=== PATIENT | male | born 1950 | race Caucasian/White ===

== ENCOUNTER 2019-06-26 09:12 | Day surgery (SDC) | payer MEDICARE ==
[~2019-06-26] VITALS: Ht 177.8 cm; Wt 103.5 kg
[2019-06-26] VITALS (10 sets, daily range): BP systolic 119–134; BP diastolic 74–96
[~2019-06-26 09:12] MED LIST: ASPI-1264 PO; CRESTOR PO; LISINOPRIL PO; NORCO PO; OMEP-84 PO; [UNRECOGNIZED DRUG - OTHER] PO
[2019-06-26] MEDS ORDERED: normal saline 1000ml 1,000 ML IV SCH (09:45)
[2019-06-26] MEDS ORDERED: diphenhydrAMINE 25mg capsule PO ONE (09:45)
[2019-06-26] MEDS ORDERED: CAYE450C PO (10:30)
[2019-06-26] MEDS ORDERED: ASCO-336 PO (10:30)
[2019-06-26] MEDS ORDERED: TADA5TAB2 PO (10:30)
[2019-06-26] MEDS ORDERED: HYDR25TA4 PO (10:30)
[2019-06-26] MEDS ORDERED: fentaNYL/PF 50MCG/1 ML 2ML syringe ONE (10:37)
[2019-06-26] MEDS ORDERED: iohexol 350 MG/ML 50ML vial IV ONE ×2 (10:37→11:48)
[2019-06-26] MEDS ORDERED: LIDOcaine 1% (10mg/ml)w/preservative injection 20ml MDV ONE (10:37)
[2019-06-26] MEDS ORDERED: midazolam 2 mg/2 ml injection ONE ×2 (10:37→11:33)
[2019-06-26] MEDS ORDERED: iohexol 350MG/ML 100ml bottle IV ONE (10:37)
[2019-06-26 10:54] LABS: BASOPHILS % (AUTO) 0.5 % (0-1); EOSINOPHILS # (AUTO) 0.2 X10'3 (0-0.9); EOSINOPHILS % (AUTO) 3.1 % (0-6); HEMATOCRIT 53.7 % (42.0-52.0); LYMPHOCYTES # (AUTO) 2.1 X10'3 (1.1-4.8); LYMPHOCYTES % (AUTO) 32.2 % (21-51); MEAN CORPUSCULAR HEMOGLOBIN 30.2 PG (27.0-31.0); MEAN CORPUSCULAR HGB CONC 33.6 g/dL (33.0-36.5); MEAN CORPUSCULAR VOLUME 89.8 FL (78-98); MEAN PLATELET VOLUME 8.1 FL (7.4-10.4); MONOCYTES # (AUTO) 0.8 X10'3 (0-0.9); MONOCYTES % (AUTO) 11.5 % (2-12); NEUTROPHILS # (AUTO) 3.5 X10'3 (1.8-7.7); NEUTROPHILS % (AUTO) 52.7 % (42-75); PLATELET COUNT 226 X10'3 (140-440); RED BLOOD COUNT 5.97 X10'6 (4.70-6.10); RED CELL DISTRIBUTION WIDTH 14.6 % (11.5-14.5); WHITE BLOOD COUNT 6.6 X10'3 (4.5-11.0)
[2019-06-26 10:59] LABS: ANION GAP 8 (8-16); BLOOD UREA NITROGEN 18 MG/DL (7-18); BUN/CREATININE RATIO 16.2 (5.4-32.0); CALCIUM 9.5 MG/DL (8.5-10.1); CHLORIDE 101 MMOL/L (99-107); CREATININE 1.11 MG/DL (0.60-1.10); GLUCOSE 118 MG/DL (70-104); MAGNESIUM 1.9 MG/DL (1.5-2.4); POTASSIUM 3.8 MMOL/L (3.5-5.1); SODIUM 136 MMOL/L (135-145); TOTAL CARBON DIOXIDE 27.2 MMOL/L (24-32); eGFR 66 ML/MIN
== END 2019-06-26 16:00 | disposition home or self-care (01) ==
LOC: SSTAY O 09:12
PROVIDERS: ATTEND Internal Medicine Cardiovascular Disease
DX: R94.39 Abnormal result of other cardiovascular function study (principal); I25.10 Atherosclerotic heart disease of native coronary artery without angina pectoris; I25.2 Old myocardial infarction; R53.83 Other fatigue
CPT/HCPCS: 36415; 80048; 83735; 85025; 85610; 93005; 93459; C1760; C1769; C1894; J1644; J2001; J2250; J3010; Q0163; Q9967; 93567; 99152; 99153; A4620; A6258

== ENCOUNTER 2023-12-30 16:07 | Emergency (ER) | payer MEDICARE, OTHER ==
[~2023-12-30] VITALS: Ht 172.7 cm; Wt 104.5 kg
[~2023-12-30 16:07] MED LIST changes: +ASCO-336 PO; +CAYE450C PO; +HYDR25TA4 PO; -NORCO PO; +TADA5TAB2 PO
[2023-12-30 16:59] LABS: BASOPHILS % (AUTO) 0.7 % (0-1); EOSINOPHILS # (AUTO) 0.3 X10'3 (0-0.9); EOSINOPHILS % (AUTO) 3.9 % (0-6); HEMATOCRIT 48.9 % (42.0-52.0); HEMOGLOBIN 16.5 g/dl (14.0-17.9); LYMPHOCYTES # (AUTO) 1.8 X10'3 (1.1-4.8); LYMPHOCYTES % (AUTO) 27.7 % (21-51); MEAN CORPUSCULAR HEMOGLOBIN 30.6 PG (27.0-31.0); MEAN CORPUSCULAR HGB CONC 33.7 g/dL (33.0-36.5); MEAN CORPUSCULAR VOLUME 90.9 FL (78-98); MONOCYTES # (AUTO) 0.7 X10'3 (0-0.9); MONOCYTES % (AUTO) 11.1 % (2-12); NEUTROPHILS # (AUTO) 3.7 X10'3 (1.8-7.7); NEUTROPHILS % (AUTO) 56.6 % (42-75); PLATELET COUNT 202 X10'3 (140-440); RED BLOOD COUNT 5.38 X10'6 (4.70-6.10); RED CELL DISTRIBUTION WIDTH 15.7 % (11.5-14.5); WHITE BLOOD COUNT 6.5 X10'3 (4.5-11.0)
[2023-12-30 17:32] LABS: ALBUMIN 3.4 G/DL (3.4-5.0); ANION GAP 14 (8-16); BLOOD UREA NITROGEN 20 MG/DL (7-18); BUN/CREATININE RATIO 18.3 (10.0-20.0); CALCIUM 8.8 MG/DL (8.5-10.1); CHLORIDE 104 MMOL/L (99-107); CREATININE 1.09 MG/DL (0.60-1.10); PRO BRAIN NATRIURETIC PEPTIDE 45 PG/ML (0-125); SODIUM 141 MMOL/L (135-145); TOTAL CARBON DIOXIDE 23.5 MMOL/L (24-32); eCRCL 58 ML/MIN; eGFR 66 ML/MIN
[2023-12-30 17:34] LABS: GLUCOSE 138 MG/DL (70-104); POTASSIUM 3.8 MMOL/L (3.5-5.1)
[2023-12-30 17:41] VITALS: PULSE 76
[2023-12-30 22:05] VITALS: BP 122/95; RESP 16; TEMP 98.2; O2SAT 96
== END 2023-12-30 19:30 | disposition home or self-care (01) ==
LOC: ER 16:07
DX: R06.02 Shortness of breath (principal); F17.200 Nicotine dependence, unspecified, uncomplicated; Z79.899 Other long term (current) drug therapy; Z79.82 Long term (current) use of aspirin
CPT/HCPCS: 36415; 71045; 80048; 83880; 84484; 85025; 93005; 99285

== ENCOUNTER 2024-10-11 23:59 | Emergency (ER) | payer MEDICARE, OTHER ==
[~2024-10-11] VITALS: Ht 172.7 cm; Wt 228.1 kg
[2024-10-12 00:08] VITALS: BP 175/103; PULSE 86; RESP 18; TEMP 99; O2SAT 97
== END 2024-10-12 02:22 | disposition left against medical advice (07) ==
LOC: ER 23:59
DX: M25.551 Pain in right hip (principal); M79.651 Pain in right thigh; Z53.21 Procedure and treatment not carried out due to patient leaving prior to being seen by health care provider

== ENCOUNTER 2024-10-30 11:20 | Outpatient (CLI) | payer MEDICARE, OTHER ==
--- NOTE | 2024-10-30 17:35 | RADIOLOGY REPORT ---
PROCEDURE: MR MRI LUMBAR SPINE INDICATION: SCIATICA, RIGHT SIDE Exam Date: 10/30/2024 11:26 AM COMPARISON: None TECHNIQUE: MRI lumbar spine without intravenous contrast. FINDINGS: Mild levoscoliosis. Grade 1 anterolisthesis of L4 on L5. There are degenerative endplate changes inc luding modic endplate changes with anterior and lateral osteophytes throughout the lumbar spine. The visualized distal spinal cord and conus medullaris are within normal limits. The conus medullaris ap pears to terminate within normal limits. The visualized retroperitoneal and paraspinal soft tissues are unremarkable. Diffuse epidural lipomatosis. The following axial levels are detailed below: T12-L1: Unremarkable. L1-L2: There is a severe circumferential disc bulge complicated by facet arthropathy narrowing the central canal to 7 mm with associated moderate to severe bilateral neuroforaminal stenosis. L2-L3: There is a severe circumferential disc bulge complicated by facet arthropathy narrowing the central canal to 7 mm with associated moderate to severe bilateral neuroforaminal stenosis. L3-L4: There is a severe circumferential disc bulge complicated by facet arthropathy narrowing the central canal to 5 mm with associated moderate to severe bilateral neuroforaminal stenosis. L4-L5: There is a severe circumferential disc bulge complicated by facet arthropathy narrowing the central canal to 5 mm with associated moderate to severe bilateral neuroforaminal stenosis. L5-S1: There is a severe circumferential disc bulge complicated by facet arthropathy associated mode rate to severe bilateral neuroforaminal stenosis. Central canal stenosis primarily due to epidural li pomatosis. IMPRESSION: 1. Rotoscoliosis with associated multilevel severe degenerative disease complicated by epidural lipom atosis. Diffuse severe central canal stenosis. Neural foraminal stenosis as above. HS:Y
== END 2024-10-30 23:59 | disposition home or self-care (01) ==
LOC: MRI02 11:20
PROVIDERS: ATTEND Family Medicine
DX: M51.17 Intervertebral disc disorders with radiculopathy, lumbosacral region (principal); M47.26 Other spondylosis with radiculopathy, lumbar region; M47.27 Other spondylosis with radiculopathy, lumbosacral region; M48.07 Spinal stenosis, lumbosacral region
CPT/HCPCS: 72148